=== PATIENT | female | born 1985 | race Caucasian/White ===

== ENCOUNTER 2023-04-28 18:28 | Emergency (ER) | payer BC ==
--- OUTSIDE RECORDS SUMMARY | 2023-04-28 18:32 | XMS REPORT | Continuity of Care Document ---
:1985 Author Organization [facility] t Address [address] [facility] [address] [place] [id number] Care Team Providers Name Role Phone TAMARA RODRIGUEZ Primary Care Physician Unavailable TAWANNA MERCADO Attending Clinician Unavailable KIRSTIE PIZARRO Attending Clinician Unavailable LAB90 Attending Clinician Unavailable MARILYNN CEVALLOS Attending Clinician Unavailable Marilynn Cevallos MD Attending Clinician [phone] Kirstie Pizarro PA-C Attending Clinician Lab, Adc Fam Pob I Attending Clinician Unavailable Tamara Coe Attending Clinician TAMARA RODRIGUEZ Attending Clinician Unavailable Payers Payer Name Policy Type Policy Number Effective Date Expiration Date S ourmiguel HUMANA 3 [id number] 2022 00:00:00 HUMANA CHOICE [id number] 2019 00:00:00 Problems Condition Condition Condition Status Onset Resolution Last Treating Co mments Source Name Details Category Date Date Treatment Clinician Date Morbid Morbid Disease Active Univers obesity obesity 9-28 [place] mass index 00 [place] dical of of Branch 40.0-49.9 40.0-49.9 Allergies, Adverse Reactions, Alerts Allergy Allergy Status Severity Reaction(s) Onset Inactive Treating Comm ents Source Name Type Date Date Clinician Codeine Propensi Active Hives Univers ty to 8-09 ity of adverse 00:00: [place] reaction 00 Medical s Branch CODEINE DRUG Active Hives Univers INGREDI 8- ity of 00:00: [place] 00 [facility] CODEINE DRUG Active Rash Univers INGREDI 2-26 ity of 00:00: [place] 00 [facility] Dent NO KNOWN Drug Active Univers ALLERGIE Class ity of S [facility] Social History Social Habit Start Date Stop Date Quantity Comments Source Exposure to Not sure [facility] SARS-CoV-2 [facility] (event) Dent Alcohol intake 2021-04-23 2021-04-23 Current drinker Unive rsity of 00:00:00 00:00:00 of alcohol [facility] (finding) Dent Tobacco use and 2021-03-24 2021-03-24 Never used Universit y of exposure 00:00:00 00:00:00 [facility] Sex Ass[birth year] Universit y of 00:00:00 00:00:00 [facility] Smoking Status Start Date Stop Date Source Never smoker [facility] Medications Ordered Filled Start Stop Current Ordering Indication Dosage Frequency Signature Comments Components Source Medication Medication Date Date Medication? Clinician (SIG) Name Name MELOXICAM Yes Take by Unive rs ORAL 9-08 mouth. ity of 13:14: [address] METHOCARBAM Yes Take by Uni vers OL ORAL 9-08 mouth. ity of 13:14: [address] MELOXICAM Yes Take by Unive rs ORAL 9-08 mouth. ity of 13:14: [address] METHOCARBAM Yes Take by Uni vers OL ORAL 9-08 mouth. ity of 13:14: [address] LOESTRIN FE Yes Take 1 Univ ers 1 mg-20 mcg 7-21 tablet ity of (21)/75 mg 00:00: orally [place] (7) tablet 00 once daily Med ical at the Dent same time. LOESTRIN FE Yes Take 1 Univ ers 1 mg-20 mcg 7-21 tablet ity of (21)/75 mg 00:00: orally [place] (7) tablet 00 once daily Med ical at the Dent same time. Immunizations Ordered Filled Immunization Date Status Comments Sour e Immunization Name Name TDAP 2021-03-24 Completed [facility] 00:00:00 [facility] TDAP 2021-03-24 Completed [facility] 00:00:00 [facility] SARS-COV-2 COVID-19 2020-10-24 Completed Unive rsity of MAURO/J&J VACCINE 00:00:00 [facility] SARS-COV-2 COVID-19 2020-10-24 Completed Unive rsity of MAURO/J&J VACCINE 00:00:00 [facility] Vital Signs Vital Name Observation Time Observation Value Comments Source Systolic blood 2021-04-23 18:12:00 117 mm[Hg] Univer sity of pressure [facility] Diastolic blood 2021-04-23 18:12:00 77 mm[Hg] Unive rsity of pressure [facility] Heart rate 2021-04-23 18:12:00 76 /min [facility] Body temperature 2021-04-23 18:12:00 36.78 Anitra [facility] Respiratory rate 2021-04-23 18:12:00 18 /min [facility] Body height 2021-04-23 18:12:00 162.6 cm [facility] Body weight 2021-04-23 18:12:00 110.315 kg [facility] BMI 2021-04-23 18:12:00 41.75 kg/m2 [facility] Procedures Procedure Date / Time Performed Performing Clinician Daysi e LAB ONLY PAP 2021-04-23 18:19:00 Kirstie Pizarro [place] SMEAR-LIQUID BASED [facility] h HIGH RISK HPV-THIN 2021-04-23 18:19:00 Kirstie Pizarro [facility] PREP [facility] PAP SMEAR-LIQUID 2021-04-23 18:19:00 Sherri Kirstie [facility] Encounters Start End Encounter Admission Attending Care Care Encounter Source Date/Time Date/Time Type Type Clinicians Facility Department ID 2022-05-22 2022-05-22 Outpatient REVA MERCADO [id number] Reva 00:00:00 00:00:00 TAWANNA Seybol d 2022-05-06 2022-05-06 Outpatient REVA MERCADO [id number] Reva 00:00:00 00:00:00 TAWANNA Seybol d 2022-04-27 2022-04-27 Outpatient Madisyn PIZARRO [facility] [id number] Univers 09:30:00 09:30:00 KIRSTIE [id number] [facility] 2022-04-22 2022-04-22 Outpatient LAB90 REVA HOBBS [id number] Reva 08:20:00 08:20:00 Seybol d 2022-04-16 2022-04-16 Outpatient REVA CEVALLOS [id number] Reva 00:00:00 00:00:00 MARILYNN Seybol d 2022-04-15 2022-04-15 Outpatient LAB90 REVA HOBBS [id number] Reva 09:45:00 09:45:00 Seybol d 2022-04-15 2022-04-15 Office Hunter Cevallos [id number] Reva 09:00:00 09:30:00 Visit Marilynn Proctor [id number] indiradarby Amrit [id number] 2021-05-13 2021-05-13 [facility] [id number] Univers 10:55:03 23:59:00 Encounter Kirstie Jha [id number] [facility] [id number] [facility] [id number] [address] 2021-05-13 2021-05-13 Outpatient Madisyn PIZARRO [facility] [id number] Univers 00:00:00 00:00:00 KIRSTIE [facility] 2021-04-23 2021-04-23 Outpatient Madisyn PIZARRO [facility] [id number] Univers 13:00:00 14:10:09 KIRSTIE [facility] 2021-04-23 2021-04-23 [facility] [id number] Univers 12:48:28 14:10:09 Visit Kirstie Jha [id number] i [place] [id number] [id number] [place] [facility] 2021-04-23 2021-04-23 Outpatient R SHERRI [facility] [id number] Univers 13:00:00 13:00:00 KIRSTIE aguila [facility] 2021-03-24 2021-03-24 Intelligence Director Lab, Adc Fam Pob I [facility] [id number] [facility] 08:49:40 09:09:[address] [facility] [id number] ity of [place] [id number] [place] [id number] [facility] [facility] 044 [facility] 2021-03-24 2021-03-24 [facility] [id number] [facility] 07:39:20 08:52:51 Visit [facility] [id number] it y of [place] [id number] [place] [phone] [place] dical [facility] 044 [facility] 2021-03-24 2021-03-24 Outpatient R JIMMIE [facility] [id number] Univers 08:00:00 08:00:00 TAMARA aguila [facility] 2019-06-27 2019-06-27 Emergency E MHBL [id number] [facility]BL 19:29:00 19:29:00 Results This patient has no known results.
--- NOTE | 2023-04-28 20:03 | RAD REPORT ---
EXAM DESCRIPTION: RAD - Knee Right 3 View - 04/28/2023 7:24 pm CLINICAL HISTORY: PAIN COMPARISON: No comparisons TECHNIQUE: Right knee, 3 views. FINDINGS: No fracture, dislocation or periosteal reaction.Mild joint effusion seen. No joint space n arrowing. No soft tissue abnormality. Clinical concerns for internal derangement or occult bony injury could be further assessed with MR im aging. IMPRESSION: No acute osseous abnormality. Mild joint effusion.
--- NOTE | 2023-04-28 20:16 | EDPHYS ---
Physician Documentation [facility] Name: Olya Armendariz Age: 37 yrs Sex: Female : 1985 Arrival Date: 04/28/2023 Time: 18:28 Bed 13 Private MD: ED Physician Lex Louise HPI: 04/28 19:15 This 37 yrs old Female presents to ER via Wheelchair with complaints of Knee Injury. cp 19:15 The patient presents with an injury, pain, that is acute. The complaints affect the cp right knee. 19:15 Context: While jumping on trampoline at [employer], landed on edge and felt "pop". cp Onset: The symptoms/episode began/occurred today. Modifying factors: the symptoms are aggravated by weight bearing, bending knee. Associated signs and symptoms: The patient has no apparent associated signs or symptoms. 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 - Social history:: Smoking status: unknown. ROS: 19:20 MS/extremity: Positive for pain, tenderness, of the right knee, Negative for decreased cp range of motion, paresthesias. 19:20 Constitutional: Negative for body aches, chills, fever, poor PO intake. cp 19:20 Neck: Negative for pain with movement, pain at rest. 19:20 Cardiovascular: Negative for chest pain, palpitations. 19:20 Respiratory: Negative for cough, shortness of breath, wheezing. 19:20 Abdomen/GI: Negative for abdominal pain, nausea, vomiting, and diarrhea. 19:20 Back: Negative for pain at rest, pain with movement. 19:20 Neuro: Negative for dizziness, headache, numbness, tingling, weakness. 19:20 All other systems are negative. Exam: 19:25 Constitutional: The patient appears in no acute distress, alert, awake, non-toxic, well cp developed, well nourished, uncomfortable. 19:25 Head/Face: Normocephalic, atraumatic. cp 19:25 Neck: ROM/movement: is normal, is supple, without pain, no range of motions limitations. 19:25 Chest/axilla: Inspection: normal. 19:25 Cardiovascular: Rate: normal, Rhythm: regular. 19:25 Respiratory: the patient does not display signs of respiratory distress, Respirations: normal, no use of accessory muscles, no retractions, labored breathing, is not present. 19:25 Abdomen/GI: Exam negative for discomfort, distension, guarding, Inspection: abdomen appears normal. 19:25 Back: pain, is absent, ROM is normal. 19:25 Musculoskeletal/extremity: Extremities: grossly normal except: noted in the right knee: Examination shows no obvious deformities, medial joint line tenderness anterior and posterior, pain with passive range of motion limits exam, no gross swelling appreciated. Vital Signs: 18:57 BP 107 / 65; Pulse 91; Resp 16; Temp 98.4; Pulse Ox 100% ; Weight 94.35 kg; Height 5 iw ft. 4 in. ; Pain 8/10; 20:57 BP 100 / 59; Pulse 85; Resp 18; Pulse Ox 100% on R/A; me1 18:57 Body Mass Index 35.70 (94.35 kg, 162.56 cm) iw 18:57 Pain Scale: Adult iw Procedures: 20:30 Splinting: Splint applied to right knee using knee immobilizer, applied by nurse. cp Patient tolerated well. MDM: 19:01 Patient medically screened. cp 19:59 Independent interpretation of the following test(s) in the Emergency Department X-Ray: cp My interpretation is images of right knee negative for fracture. 20:13 Data reviewed: vital signs, nurses notes, radiologic studies, plain films, and as a cp result, I will discharge patient. I considered the following discharge prescriptions or medication management in the emergency department Medications were administered in the Emergency Department. See OCT. ED course: VSS. Will place in knee immobilizer, recommend use of crutches and non-wt bearing. Recommend f/u with ortho. 04/28 19:01 Order name: XRAY Knee RIGHT 3 view; Complete Time: 20:05 cp 04/28 20:05 Interpretation: Report reviewed. cp 04/28 20:05 Order name: Knee Immobilizer; Complete Time: 20:57 cp 04/28 20:05 Order name: Crutches; Complete Time: 20:57 cp Administered Medications: 20:08 Drug: Ibuprofen PO 800 mg Route: PO; me1 20:57 Follow up: Response: No adverse reaction; Pain is decreased me1 20:08 Drug: Acetaminophen PO 1000 mg Route: PO; me1 20:57 Follow up: Response: No adverse reaction; Pain is decreased me1 Disposition: 21:02 Co-signature as Attending Physician, Lex Louise DO I was immediately available on-site ms3 in the Emergency Department for consultation in the care of the patient. Disposition Summary: 04/28/23 20:15 Discharge Ordered Location: Home cp Problem: new cp Symptoms: have improved cp Condition: Stable cp Diagnosis - Sprain of unspecified site of right knee cp Followup: cp - With: Aguilar Sandy MD - When: 2 - 3 days - Reason: Recheck today's complaints Discharge Instructions: - Discharge Summary Sheet cp - Knee Sprain, Adult cp Forms: - Medication Reconciliation Form cp - Thank You Letter cp - Antibiotic Education cp - Prescription Opioid Use cp - Patient Portal Instructions cp - Leadership Thank You Letter cp Prescriptions: - Naprosyn 500 mg Oral Tablet - take 1 tablet by ORAL route 2 times per day take with food; 20 tablet; Refills: cp 0, Product Selection Permitted Signatures: Dispatcher [employer] Marsha Kaba, RN RN Barron Patel PA PA cp Lex Louise DO DO ms3 Myra Cardenas RN RN me1
--- NOTE | 2023-04-28 20:16 | ER ---
Nurse's Notes [facility] Name: Olya Armendariz Age: 37 yrs Sex: Female : 1985 Arrival Date: 04/28/2023 Time: 18:28 Bed 13 Private MD: Diagnosis: Sprain of unspecified site of right knee Presentation: 04/28 18:57 Chief complaint: Patient states: was jumping on trampoline and felt her right knee pop iw three times, now there is bruising. Coronavirus screen: At this time, the client does not indicate any symptoms associated with coronavirus-19. Ebola Screen: Patient negative for fever greater than or equal to 101.5 degrees Fahrenheit, and additional compatible Ebola Virus Disease symptoms Patient denies exposure to infectious person. Patient denies travel to an Ebola-affected area in the 21 days before illness onset. No symptoms or risks identified at this time. Initial Sepsis Screen: Does the patient meet any 2 criteria? No. Patient's initial sepsis screen is negative. Does the patient have a suspected source of infection? No. Patient's initial sepsis screen is negative. Risk Assessment: Do you want to hurt yourself or someone else? Patient reports no desire to harm self or others. Onset of symptoms was April 28, 2023. 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 - Social history:: Smoking status: unknown. Screenin:10 [facility] ED Fall Risk Assessment (Adult) History of falling in the last 3 months, me1 including since admission No falls in past 3 months (0 pts) Confusion or Disorientation No (0 pts) Intoxicated or Sedated No (0 pts) Impaired Gait Yes (1 pt) Mobility Assist Device Used No (0 pt) Altered Elimination No (0 pt) Score/Fall Risk Level 0 - 2 = Low Risk. Abuse screen: Denies threats or abuse. Nutritional screening: No deficits noted. Tuberculosis screening: No symptoms or risk factors identified. Assessment: 20:10 General: Appears uncomfortable, obese, well groomed, well developed, well nourished, me1 Behavior is calm, cooperative, appropriate for age. General: Reports jumping on a trampoline about 3 pm today and her right knee popped and now is hurting and bruised. Pain: Complains of pain in right knee Pain does not radiate. Pain currently is 8 out of 10 on a pain scale. Quality of pain is described as tender, throbbing, Pain began suddenly, 4 hours ago. Is continuous. Neuro: Level of Consciousness is awake, alert, obeys commands, Oriented to person, place, time, situation, Appropriate for age. Cardiovascular: Capillary refill < 3 seconds Patient's skin is warm and dry. Respiratory: Airway is patent Respiratory effort is even, unlabored, Respiratory pattern is regular, symmetrical. Musculoskeletal: Reports pain in right knee. Vital Signs: 18:57 BP 107 / 65; Pulse 91; Resp 16; Temp 98.4; Pulse Ox 100% ; Weight 94.35 kg; Height 5 iw ft. 4 in. ; Pain 8/10; 20:57 BP 100 / 59; Pulse 85; Resp 18; Pulse Ox 100% on R/A; me1 18:57 Body Mass Index 35.70 (94.35 kg, 162.56 cm) iw 18:57 Pain Scale: Adult iw ED Course: 18:32 Patient arrived in ED. im 18:35 Barron Guerrero PA is PHCP. cp 18:35 Lex Louise DO is Attending Physician. cp 18:58 Triage completed. iw 18:58 Arm band placed on. iw 19:26 XRAY Knee RIGHT 3 view In Process Unspecified. EDMS 20:04 Myra Cardenas, RUSSELL is Primary Nurse. me1 20:10 Patient has correct armband on for positive identification. Bed in low position. Call me1 light in reach. Side rails up X 1. Provided Education on: POC. Verbalized understanding.. 20:10 No provider procedures requiring assistance completed. Patient did not have IV access me1 during this emergency room visit. 20:14 Aguilar Sandy MD is Referral Physician. cp Administered Medications: 20:08 Drug: Ibuprofen PO 800 mg Route: PO; me1 20:57 Follow up: Response: No adverse reaction; Pain is decreased me1 20:08 Drug: Acetaminophen PO 1000 mg Route: PO; me1 20:57 Follow up: Response: No adverse reaction; Pain is decreased me1 Medication: 20:10 VIS not applicable for this client. me1 Outcome: 20:15 Discharge ordered by . jose 20:57 Discharged to home ambulatory, with crutches, with family. me1 20:57 Condition: stable 20:57 Discharge instructions given to patient, family, Instructed on discharge instructions, follow up and referral plans. medication usage, Demonstrated understanding of instructions, follow-up care, medications, Prescriptions given X 1. 20:58 Patient left the ED. me1 Signatures: Dispatcher [employer] EDMarsha Hull RN RN iw Barron Guerrero PA PA cp Mendoza, Itzel im Eddleman, Michelle, RN RN me1 Corrections: (The following items were deleted from the chart) 18:59 18:57 Chief complaint: Patient states: was jumping on trampoline and felt her right iw knee pop twice, now there is bruising iw 18:59 18:57 Pulse 91bpm; Resp 16bpm; Pulse Ox 100%; Temp 98.4F; 94.35 kg; Height 5 ft. 4 in.; iw BMI: 35.7; Pain 8/10, Adult; iw 19:02 18:57 Pulse 91bpm; Resp 16bpm; Pulse Ox 100%; Temp 98.4F; 94.35 kg; Height 5 ft. 4 in.; iw BMI: 35.7; Pain 8/10, Adult; iw
[2023-04-28] MEDS ORDERED: ACETAMINOPHEN 500 MG TAB ONE (20:17)
[2023-04-28] MEDS ORDERED: IBUPROFEN 400 MG TAB ONE (20:17)
[2023-04-28 22:11] VITALS: TEMP 98.4; O2SAT 100
[2023-04-28 22:13] VITALS: BP 100/59
== END 2023-04-28 20:58 | disposition home or self-care (01) ==
LOC: ER 18:28
DX: S83.91XA Sprain of unspecified site of right knee, initial encounter (principal)
CPT/HCPCS: 99283

== ENCOUNTER 2023-07-23 06:02 | Day surgery (SDC) | payer BC ==
[2023-07-19 10:11] LABS: Absolute Lymphocytes (CBC) 1.8 K/uL (0.7-4.9); Hematocrit 41.8 % (36.0-45.0); Lymphocytes % 25.6 % (15.3-44.8); MCV 88.9 fL (80-100); Platelets 217 thou/uL (152-406)
--- NOTE | 2023-07-19 10:14 | RAD REPORT ---
EXAM DESCRIPTION: RAD - Chest Pa And Lat (2 Views) - 07/19/2023 10:01 am CLINICAL HISTORY: Pre op pending meniscus repair COMPARISON: No comparisons FINDINGS: Lines: None. Lungs: No evidence of edema or pneumonia. Pleural: No significant pleural effusions or pneumothorax. Cardiac: The heart size is within normal limits. Mediastinum: Within normal limits. Bones: No acute fractures. Other: None IMPRESSION: No acute cardiopulmonary disease.
[2023-07-19 10:25] LABS: Protime INR 0.95
[2023-07-19 10:26] LABS: Potassium 3.9 mEq/L (3.5-5.1)
--- NOTE | 2023-07-20 13:31 | EKG ---
Test Date: 2023-07-19 Test Time: 10:28:06 Manager Party: KASHIF MEASUREMENT RESULTS: Intervals: Rate: 66 [place]: 162 QRSD: 82 QT: 370 QTc: 387 [place]: P: 50 [place]: 162 QRS: 74 T: 38 INTERPRETIVE STATEMENTS: Normal sinus rhythm Normal ECG No previous ECG available for comparison Electronically Signed On 07-20-23 13:27:15 ELECTRICAL AND RADIO MOCK UP MECHANIC by Rigoberto Guevara
[2023-07-23] MEDS ORDERED: CEFAZOLIN SODIUM 2 GM/VIAL ONE (06:19)
[2023-07-23] MEDS ORDERED: Ringers Lactate 1,000 ML IV ONE (06:19)
[2023-07-23] MEDS ORDERED: EPINEPHRINE 1 MG/ML VIAL ONE ×2 (07:17→09:39)
[2023-07-23] MEDS ORDERED: dexAMETHasone 10 MG/ML VIAL ONE ×2 (07:17→09:39)
[2023-07-23] MEDS ORDERED: BUPIVACAINE 0.5% PF 10 ML VIAL ONE (07:17)
[2023-07-23] MEDS ORDERED: LIDOCAINE 1% MPF 5 ML VIAL ONE ×2 (07:17→09:39)
[2023-07-23] MEDS ORDERED: FENTANYL CITR 100 MCG/2 ML ONE ×2 (07:17→09:39)
[2023-07-23] MEDS ORDERED: MIDAZOLAM HCL 2 MG/2 ML INJ ONE ×2 (07:18→09:39)
[2023-07-23] MEDS ORDERED: dexAMETHasone 4 MG/ML VIAL ONE (07:54)
[2023-07-23] MEDS ORDERED: LIDOCAINE 2% MPF 5 ML VIAL ONE ×2 (07:54→09:39)
[2023-07-23] MEDS ORDERED: ONDANSETRON 4 MG/2 ML VIAL ONE ×2 (07:54→09:39)
[2023-07-23] MEDS ORDERED: KETOROLAC 30 MG/ML INJ ONE (07:54)
[2023-07-23] MEDS ORDERED: propofoL 200 MG/20 ML VIAL IV ONE ×2 (07:55→09:39)
[2023-07-23] MEDS: HYDROMORPHONE HCL 1 MG/ML INJ ONE ×2 (10:30→10:35)
--- NOTE | 2023-07-23 10:55 | RAD REPORT ---
EXAM DESCRIPTION: RAD - Knee Right 2 View - 07/23/2023 10:29 am CLINICAL HISTORY: The right knee surgery FINDINGS: Right knee is immobilized status post surgery. No fracture or dislocation. Patient is status post ACL repair
--- NOTE | 2023-07-23 11:04 | P.BOP ---
Preoperative diagnosis: right knee ACL tear, medial meniscus tear Postoperative diagnosis: same Primary procedure: right knee arthroscopic ACL reconstruction with Achilles allograft Secondary procedure: right knee arthroscopic partial medial meniscectomy Other procedure(s): right knee arthroscopic Animal Control Specialist: NONE,NONE Estimated blood loss: 5 cc Specimen: none Findings: see dictation Anesthesia: General Complications: None Implants: 7x20 mm arthrex bio screw, 10x30 bioscrew, 4.75 mm arthrex swivelock Fluids & blood products: per anesthesia record; TT: 69 mins @ 300 mmHg Transferred to: Recovery Room Condition: Good
[2023-07-23 12:00] VITALS: BP 111/66; TEMP 98.7; O2SAT 96
--- NOTE | 2023-07-25 21:14 | P.OP ---
Preoperative diagnosis: right knee ACL tear, medial meniscus tear Postoperative diagnosis: same Primary procedure: right knee arthroscopic ACL reconstruction with Achilles allograft Secondary procedure: right knee arthroscopic partial medial meniscectomy Other procedure(s): right knee arthroscopic medial plica excision Anesthesia: general Estimated blood loss: 5 cc Specimen: none Findings: see dictation Operative Technique: Indications For Procedure: Olya is a 37-year-old female, who presented to my clinic after sustaining an injury to her right knee. She reports subsequent instability, pain, and swelling to her right knee. Physical exam findings, as well as MRI findings were consistent with right knee ACL tear and medial me niscus tear. After a discussion with the patient and her family the risks and benefits associated operative and nonoperative treatment at length, as well as graft options, they expressed understanding and elected to proceed with right ACL reconstruction with bone-patellar tendon-bone autograft and partial medial meniscectomy vs. medial meniscus repair. Description Of Procedure: After informed consent was obtained, the patient was identified in the preoperative holding area. The right lower extremity was marked. The patient was then brought back to the operating room, transferred to the operating table in supine fashion, and placed under general LMA anesthesia. The right lower extremity was examined. The patient did have full range of motion and a positive Tatum examination with instability and no endpoint. The right lower extremity was then prepped and draped in the usual sterile fashion, and a timeout was initiated. The correct patient and procedure were identified. The patient did receive his prophylactic preoperative antibiotics. An Esmarch was then used exsanguinate the right lower extremity, and the tourniquet was then inflated to 300 mmHg. The Achilles allograft was prepared on the back table by first assistant with a 9x20 mm bone block, 100 mm in length and whipstitched to a thickness of 10 mm. Next, a standard anterolateral portal was made, and a diagnostic arthroscopy was performed. The arthroscope was brought into the patellofemoral compartment. The patient was noted to have pristine cartilage over the undersurface of the patella, as well as the trochlear groove. There was a medial plica noted and a medial plica excision was performed using an arthroscopic shaver and radiofrequency ablater. The arthroscope was then brought into both medial and lateral gutters, and there were no obvious loose bodies noted. The arthroscope was then brought into the medial compartment, and under direct visualization with the spinal needle and an 11 blade, an anteromedial portal was then created. The probe was inserted, and the patient had some chondromalacia and softening of the medial femoral condyle. There was a complex tear to the posterior horn of the medial meniscus. The tear was not amenable to repair. At that time, a partial medial meniscectomy was performed with a meniscal biter and an arthroscopic shaver to smooth meniscal borders. Loose chondral flaps were debrided with a meniscal biter and arthroscopic shaver. The arthroscope was then brought into the intracondylar notch, and the patient was noted to have an obvious ACL tear. The remaining ACL was then removed using an arthroscopic shaver, and a radiofrequency ablater was then used to elevate the soft tissue off the lateral femoral condyle. This was also used to levi the footprint on the tibial plateau. Next, the arthroscope was brought into the lateral compartment. The patient was noted to have pristine cartilage over the lateral femoral condyle and the lateral tibial plateau with no obvious chondral pathology. The lateral meniscus was stable to probe and without tear. The arthroscope was then brought back into the intracondylar notch, and an 11 mm retro cutter was then placed over the tibial footprint. A 2 cm incision was made over the anteromedial proximal tibia for the placement of the guide onto the proximal tibia, and a guidepin was then introduced, and then tibial tunnel was retroreamed. An arthroscopic shaver was then used to clean out any bony debris within the tunnel, as well as within the joint. The knee was then brought into hyperflexion, and a 7 mm femoral offset was then used, and it was placed over a prior marked area at the insertion of the ACL on the lateral femoral condyle. A guidepin was then placed, and a 4.5 mm reamer was used over-ream the guidepin to ensure proper tunneling depth, and a 10 mm low profile reamer was then used to create the femoral tunnel. The arthroscopic shaver was then used to clean any bony debris. The graft was then placed through the tunnel, and the grasper, which had been prepared on the back table, was then passed and placed into proper position within the femoral tunnel using hemostats. The tunnel was then notched and tapped, and a 7 x 20 Arthrex biocomposite screw was placed. The knee was then placed in extension with tension being placed on the graft and the arthroscope was then placed in the tibial tunnel good position of the graft in the tunnel, and it was well seated within the tunnel, and the 10 x 30 mm biointerference screw was then placed in the tibial tunnel without complication. The knee was then examined and found to have a stable Tatum, and a swivelock was then placed for back-up fixation, and the wounds were then irrigated thoroughly with normal saline. The subcutaneous tissue was then approximated using 2-0 Vicryl, and the portal site incisions were approximated using a 5-0 Monocryl. Postoperative Plan: The patient will proceed with postoperative therapy, weightbearing as tolerated in her right lower extremity, and she will follow up with me in next week for first followup visit, as well as a check up. Complications: None Implants: Arthrex 7x20 mm Bioscrew, 10x30 mm Bioscrew, Swivelock Fluids & blood products: per anesthesia record; TT: 69 mins @ 300 mmHg Transferred to: Recovery Room Condition: Good
== END 2023-07-23 11:35 | disposition home or self-care (01) ==
LOC: OR 06:02
PROVIDERS: ATTEND Orthopaedic Surgery Sports Medicine
PROC: 0MSN4ZZ Reposition Right Knee Bursa and Ligament, Percutaneous Endoscopic Approach (ICD-10-PCS; 2023-07-23)
PROC: 0SBC4ZZ Excision of Right Knee Joint, Percutaneous Endoscopic Approach (ICD-10-PCS; principal; 2023-07-23 08:00)
DX: S83.511A Sprain of anterior cruciate ligament of right knee, initial encounter (principal); S83.241A Other tear of medial meniscus, current injury, right knee, initial encounter; M25.561 Pain in right knee; F41.9 Anxiety disorder, unspecified; E66.9 Obesity, unspecified
CPT/HCPCS: 29888; 29881; 93005; 85025; 80048; 36415; 85610; 85730; 71046; 73560; J2704; J1100 ×2; J2001 ×2; J2250 ×2; J3010; J0171; J1170; J2405; J7120

== ENCOUNTER 2024-06-07 22:13 | Emergency (ER) | payer OTHER ==
--- OUTSIDE RECORDS SUMMARY | 2024-06-07 22:16 | XMS REPORT | Continuity of Care Document ---
Author Name Unknown Address [address] [facility] [place] [address] [facility] Address [address] [facility] [address] [place] [address] Care Team Providers Care Nc Manager Name Role Phone TAMARA RODRIGUEZ Primary Care Physician Unavailab KATHARINA Poe Attending Clinician Unavailable TAWANNA MERCADO Attending Clinician Unavailable KIRSTIE PIZARRO Attending Clinician Unavailable LAB90 Attending Clinician Unavailable MARILYNN CEVALLOS Attending Clinician UnaMarilynn Wallace MD Attending Clinician [phone] Kirstie Pizarro PA-C Attending Clinician [phone] Lab, Adc Fam Pob I Attending Clinician UnavailTamara Ramon Attending Clinician [phone] TAMARA RODRIGUEZ Attending Clinician Unavailable Payers Payer Name Policy Type Policy Number Effective Date Expirati on Date Source [employer] 3 [id number] 2022 00:00:00 [employer] CHOICE [id number] 2019 00:00:00 Problems Condition Name Condition Details Condition Category Status Onset Date Resolution Date Last Treatment Date Treating Clinician Comments Source Morbid obesity with body mass index of 40.0-49.9 Morbid obesity with body mass index of 40.0-49.9 Disease Active 9- 00:00: 00 [facility] Allergies, Adverse Reactions, Alerts Allergy Name Allergy Type Status Severity Reaction(s) Onset Date Inactive Date Treating Clinician Comments Source Codeine Propensi ty to adverse reaction s Active Hives 03-24 00:00: 00 [facility] CODEINE DRUG INGREDI Active Hives 03-24 00:00: 00 [facility] CODEINE DRUG INGREDI Active Rash 2- 00:00: 00 [facility] NO KNOWN ALLERGIE S Drug Class Active [facility] Social History Social Habit Start Date Stop Date Quantity Comments Source Exposure to SARS-CoV-2 (event) Not sure [facility] Alcohol intake 2021-04-23 00:00:00 2021-04-23 00:00:00 Current drinker of alcohol (finding) [facility] Tobacco use and exposure 2021-03-24 00:00:00 2021-03-24 00:00:00 Never used [facility] Sex Assigned At 1985 00:00:00 1985 00:00:00 [facility] Smoking Status Start Date Stop Date Source Never smoker [facility] Medications Ordered Medication Name Filled Medication Name Start Date Stop Date Current Medication? Ordering Clinician Indication Dosage Frequency Signature (SIG) Comments Components Source MELOXICAM ORAL 04-23 13:14: 39 Yes Take by mouth. [facility] LOESTRIN FE 1 mg-20 mcg (21)/75 mg (7) tablet 7 00:00: 00 Yes Take 1 tablet orally once daily at the same time. [facility] Vital Signs Vital Name Observation Time Observation Value Comments S madie Systolic blood pressure 2021-04-23 18:12:00 117 mm[Hg] [facility] Diastolic blood pressure 2021-04-23 18:12:00 77 mm[Hg] [facility] Heart rate 2021-04-23 18:12:00 76 /min [facility] Body temperature 2021-04-23 18:12:00 36.78 Anitra [facility] Respiratory rate 2021-04-23 18:12:00 18 /min [facility] Body height 2021-04-23 18:12:00 162.6 cm [facility] Body weight 2021-04-23 18:12:00 110.315 kg [facility] BMI 2021-04-23 18:12:00 41.75 kg/m2 [facility] Procedures Procedure Date / Time Performed Performing Clinicia n Source LAB ONLY PAP SMEAR-LIQUID BASED 2021-04-23 18:19:00 Kirstie Pizarro [facility] HIGH RISK HPV-THIN PREP 2021-04-23 18:19:00 Kirstie Pizarro [facility] PAP SMEAR-LIQUID BASED-CP 2021-04-23 18:19:00 Kirstie Pizarro [facility] Encounters Start Date/Time End Date/Time Encounter Type Admission Type Attending [facility] Care Facility Care Department Encounter ID Source 2024-03-13 08:34:01 Outpatient [facility] [id number] [facility] 2024-01-28 09:24:00 2024-01-28 12:29:00 Emergency E KATHARINA JIN [facility] [id number] [facility] 2022-05-22 00:00:00 2022-05-22 00:00:00 Outpatient TAWANNA MERCADO [id number] [facility] 2022-05-06 00:00:00 2022-05-06 00:00:00 Outpatient TAWANNA MERCADO [id number] [facility] 2022-04-27 09:30:00 2022-04-27 09:30:00 Outpatient KIRSTIE LUU [facility] [id number] [facility] 2022-04-22 08:20:00 2022-04-22 08:20:00 Outpatient LAB90 REVA HOBBS [id number] Reva Scott 2022-04-16 00:00:00 2022-04-16 00:00:00 Outpatient MARILYNN CEVALLOS [id number] [facility] Scott 2022-04-15 09:45:00 2022-04-15 09:45:00 Outpatient LAB90 REVA HOBBS [id number] Reva Scott 2022-04-15 09:00:00 2022-04-15 09:30:00 Office Visit Marilynn Cevallos [id number] Reva Scott 2021-05-13 10:55:03 2021-05-13 23:59:00 Hospital Encounter [facility] 1..[id number] [facility] 2021-05-13 00:00:00 2021-05-13 00:00:00 Outpatient Madisyn LAURAKARLO [facility] [id number] [facility] 2021-04-23 13:00:00 2021-04-23 14:10:09 Outpatient Madisyn PIZARRO [facility] [id number] [facility] 2021-04-23 12:48:28 2021-04-23 14:10:09 Office Visit [facility] Building [id number] [facility] 2021-04-23 13:00:00 2021-04-23 13:00:00 Outpatient Madisyn PIZARRO [facility] [id number] [facility] 2021-03-24 08:49:40 2021-03-24 09:09:40 Form Carpenter Visit Lab, Adc [facility] Office Building One [id number] [facility] 2021-03-24 07:39:20 2021-03-24 08:52:51 Office Visit Tamaar Rodriguez [facility] One [id number] [facility] 2021-03-24 08:00:00 2021-03-24 08:00:00 Outpatient R TAMARA RODRIGUEZ [facility] [id number] [facility] 2019-06-27 19:29:00 2019-06-27 19:29:00 Emergency E [id number] [facility]
[2024-06-07] MEDS ORDERED: ONDANSETRON 4 MG/2 ML VIAL ONE (23:20)
[2024-06-07] MEDS ORDERED: FENTANYL CITR 100 MCG/2 ML ONE (23:20)
[2024-06-07] MEDS ORDERED: KETOROLAC 30 MG/ML INJ ONE (23:20)
[2024-06-07] MEDS ORDERED: NA CHLORIDE 0.9% 1,000 ML ONE (23:21)
[2024-06-07 23:43] LABS: Absolute Basophils 0.1 K/uL (0-0.5); Absolute Eosinophils 0.1 K/uL (0-0.5); Absolute Lymphocytes (CBC) 1.8 K/uL (0.7-4.9); Absolute Monocytes 0.6 K/uL (0.1-1.3); Absolute Neutrophil 9.5 K/uL (1.8-8.0); Basophils % 0.5 % (0-1.3); Hematocrit 43.5 % (36.0-45.0); Hemoglobin 14.6 g/dL (12.0-15.0); MCH 29.8 pg (27.0-35.0); MCHC 33.4 g/dL (32.0-36.0); MCV 89.1 fL (80-100); MPV 9.3 fL (7.6-11.3); Monocytes % 4.7 % (3.3-12.3); Neutrophils % 78.8 % (41.7-73.7); Platelets 248 thou/uL (152-406); RBC Red Blood Cell Count 4.89 M/uL (3.86-4.86); Red Cell Distribution Width 13.1 % (12.1-15.2)
[2024-06-08 00:02] LABS: Albumin 3.4 g/dL (3.4-5.0); Albumin/Globulin Ratio 0.8 (1.1-1.8); Anion Gap 10.4 mEq/L (5.0-15.0); Bilirubin Total 0.3 mg/dL (0.2-1.0); Globulin 4.3 g/dL (2.3-3.5); Potassium 3.4 mEq/L (3.5-5.1); Protein, Total 7.7 g/dL (6.4-8.2)
[2024-06-08 01:29] LABS: Specific Gravity 1.007 (1.005-1.030)
[2024-06-08 01:31] LABS: Specific Gravity 1.007 (1.005-1.030); Sqamous Epithelial <5 /HPF (None Seen); Urine Bacteria 20-50 /HPF (<20); Urine Bilirubin NEGATIVE (Negative); Urine Blood Negative (Negative); Urine Clarity Turbid (Clear); Urine Color Colorless (Yellow); Urine Culture Reflex Order NOT NEEDED; Urine Glucose NEGATIVE (Negative); Urine Ketones NEGATIVE (Negative); Urine Microscopic Reflex YN ORDER UMIC; Urine Mucus Slight /HPF (None Seen); Urine Nitrite 1+ (Negative); Urine Protein NEGATIVE (Negative); Urine RBC <5 /HPF (None Seen); Urine Urobilinogen Normal (Normal); Urine WBC <5 /HPF (<5)
--- NOTE | 2024-06-08 03:08 | ER ---
Nurse's Notes [facility] Name: Olya Armendariz Age: 38 yrs Sex: Female : 1985 Arrival Date: 06/07/2024 Time: 22:13 Bed 18 Private MD: Dagoberto Coleman E Diagnosis: Acute Thoracic Back pain , Acute left upper back musculoskeletal pain Presentation: 06/07 22:42 Chief complaint: Patient states: Feeling short of breathe and pain to left back front cg and back. Started today around 1730. Ebola Screen: Patient negative for fever greater than or equal to 101.5 degrees Fahrenheit, and additional compatible Ebola Virus Disease symptoms. Initial Sepsis Screen: Does the patient meet any 2 criteria? No. Patient's initial sepsis screen is negative. Does the patient have a suspected source of infection? No. Patient's initial sepsis screen is negative. Risk Assessment: Do you want to hurt yourself or someone else? Patient reports no desire to harm self or others. Onset of symptoms was June 07, 2024. 22:42 Method Of Arrival: Ambulatory 22:42 Acuity: GENEVIEVE 3 cg 06/08 02:58 Coronavirus screen: Client denies travel out of the [place] in the last 14 days. rg5 Triage Assessment: 02:58 General: Appears distressed, Behavior is calm, cooperative. Neuro: Level of rg5 Consciousness is awake, alert, obeys commands. Cardiovascular: Capillary refill Patient's skin is warm and dry. Respiratory: Onset: The symptoms/episode began/occurred. GI: Abd is soft and non tender. : No signs and/or symptoms were reported regarding the genitourinary system. Derm: Skin is intact, Skin is diaphoretic, dry, Skin is. Musculoskeletal: Circulation, motion, and sensation intact. Range of motion: limited in all extremities. Historical: - Allergies: 00:29 Codeine; jb4 - Immunization history:: Adult Immunizations unknown. - Infectious Disease History:: Denies. - Social history:: Smoking status: unknown. Screenin:29 [facility] ED Fall Risk Assessment (Adult) History of falling in the last 3 months, jb4 including since admission No falls in past 3 months (0 pts) Confusion or Disorientation No (0 pts) Intoxicated or Sedated No (0 pts) Impaired Gait No (0 pts) Mobility Assist Device Used No (0 pt) Altered Elimination No (0 pt) Score/Fall Risk Level 0 - 2 = Low Risk Oriented to surroundings, Maintained a safe environment. Abuse screen: Denies threats or abuse. Nutritional screening: No deficits noted. Tuberculosis screening: No symptoms or risk factors identified. Assessment: 00:00 General: Appears in no apparent distress. uncomfortable, Behavior is calm, cooperative, jb4 appropriate for age. Pain: Complains of pain in left low back and left mid back Pain does not radiate. Pain currently is 10 out of 10 on a pain scale. Neuro: Level of Consciousness is awake, alert, obeys commands, Oriented to person, place, time, situation. Cardiovascular: Patient's skin is warm and dry. Respiratory: Airway is patent Respiratory effort is even, unlabored, Respiratory pattern is regular, symmetrical. GI: Abdomen is non-distended, obese, Reports nausea, vomiting. : Reports pain in left flank(s). Derm: Skin is intact, Skin is pink, warm \T\ dry. Musculoskeletal: Circulation, motion, and sensation intact. Range of motion: intact in all extremities. 01:30 Reassessment: Patient and/or family updated on plan of care and expected duration. Pain rg5 level reassessed. Patient is alert, oriented x 3, equal unlabored respirations, skin warm/dry/pink. 01:30 General: Appears in no apparent distress. Behavior is calm, cooperative, appropriate rg5 for age. Neuro: Level of Consciousness is awake, alert, obeys commands, Oriented to person, place, time. Cardiovascular: Patient's skin is warm and dry. Rhythm is regular. Respiratory: Airway is patent Respiratory effort is even, unlabored, Respiratory pattern is regular, symmetrical, Breath sounds are clear. GI: Abdomen is obese, Abd is soft and non tender X 4 quads. : No signs and/or symptoms were reported regarding the genitourinary system. EENT: No deficits noted. Derm: Skin is intact, Skin is dry, Skin is normal, Skin temperature is warm. Musculoskeletal: Circulation, motion, and sensation intact. Range of motion: intact in all extremities. 02:24 Reassessment: Patient and/or family updated on plan of care and expected duration. Pain rg5 level reassessed. Patient is alert, oriented x 3, equal unlabored respirations, skin warm/dry/pink. Vital Signs: 06/07 22:42 BP 116 / 74; Pulse 86; Resp 22; Temp 97.7; Pulse Ox 100% ; Weight 97.98 kg; Height 5 cg ft. 4 in. ; Pain 710; 06/08 00:33 BP 110 / 59; Pulse 66; Resp 16; Pulse Ox 100% on R/A; jb4 01:41 BP 116 / 66; Pulse 67; Resp 17; Pulse Ox 99% on R/A; rg5 02:22 BP 101 / 60; Pulse 67; Resp 17; Pulse Ox 100% on R/A; rg5 06/07 22:42 Body Mass Index 37.08 (97.98 kg, 162.56 cm) cg 06/07 22:42 Pain Scale: Adult cg ED Course: 06/07 22:18 Patient arrived in ED. gm2 22:18 Dagoberto Coleman MD is Private Physician. gm2 22:27 Filomena Proctor FNP-C is PSYCHIATRIC. kb 22:27 Manas Ellington MD is Attending Physician. kb 22:44 Triage completed. cg 23:15 CBC with Diff Sent. jb4 23:15 CMP Sent. jb4 23:15 Lipase Sent. jb4 23:29 Amadeo Maria, RN is Primary Nurse. jb4 23:59 CT Stone Protocol In Process Unspecified. EDMS 06/08 00:29 Provided Education on: plan of care. jb4 02:58 Arm band placed on. rg5 03:03 Dagoberto Coleman MD is Referral Physician. sp4 03:23 No provider procedures requiring assistance completed. IV discontinued, bleeding rg5 controlled, No redness/swelling at site. Pressure dressing applied. Administered Medications: 06/07 23:29 Drug: NS 0.9% IV 1000 ml IV at 1 bolus Per protocol; to be given as a bolus over 60 jb4 minutes Route: IV; Rate: 1 bolus; Site: right antecubital; 06/08 00:30 Follow up: IV Status: Completed infusion; IV Intake: 1000ml rg5 06/07 23:29 Drug: fentaNYL (PF) IVP 25 mcg IVP once Route: IVP; Site: right antecubital; jb4 06/08 01:24 Follow up: Response: No adverse reaction; Pain is decreased rg5 06/07 23:30 Drug: TORadol - Ketorolac IVP 15 mg IVP once Route: IVP; Site: right antecubital; jb4 06/08 03:09 Follow up: Response: No adverse reaction rg5 06/07 23:30 Drug: Ondansetron IVP 4 mg IVP once; over 2 minutes Route: IVP; Site: right antecubital;jb4 06/08 03:09 Follow up: Response: No adverse reaction rg5 Medication: 00:29 VIS not applicable for this client. jb4 Intake: 00:30 IV: 1000ml; Total: 1000ml. rg5 Outcome: 03:07 Discharge ordered by MD. sp4 03:23 Discharged to home ambulatory, rg5 03:23 Condition: stable 03:23 Discharge instructions given to patient, Instructed on discharge instructions, follow up and referral plans. Demonstrated understanding of instructions, follow-up care, medications, Prescriptions given X 3, 03:24 Patient left the ED. rg5 Signatures: Dispatcher [employer] EDMS Filomena Proctor, REAGAN-C SECURITY SOFTWARE ENGINEER-Tata Thapa, RUSSELL RN Amadeo Maria RN RN jb4 Manas Ellington MD MD spKrystin Vaca gm2 Marco A Ledesma, RN RN rg5 Corrections: (The following items were deleted from the chart) 00: 00:28 General: Appears in no apparent distress. uncomfortable, Behavior is calm, jb4 cooperative, appropriate for age, jb4 00: 00:28 Pain: Complains of pain in left low back and left mid back Pain does not radiate. jb4 Pain currently is 10 out of 10 on a pain scale. jb4 : 00:28 Neuro: Level of Consciousness is awake, alert, obeys commands, Oriented to jb4 person, place, time, situation, jb4 : 00:28 Cardiovascular: Patient's skin is warm and dry. jb4 jb4 00:28 Respiratory: Airway is patent Respiratory effort is even, unlabored, Respiratory jb4 pattern is regular, symmetrical, jb4 : 00:28 GI: Abdomen is non-distended, obese, Reports nausea, vomiting, jb4 jb4 00:28 : Reports pain in left flank(s), jb4 jb4 : 00:28 Derm: Skin is intact, Skin is pink, warm \T\ dry. jb4 jb4 : 00:28 Musculoskeletal: Circulation, motion, and sensation intact. Range of motion: jb4 intact in all extremities, jb4
--- NOTE | 2024-06-08 03:08 | EDPHYS ---
Physician Documentation [facility] Name: Olya Armendariz Age: 38 yrs Sex: Female : 1985 Arrival Date: 06/07/2024 Time: 22:13 Bed 18 Private MD: Dagoberto Coleman E ED Physician Manas Ellington HPI: 06/07 23:41 This 38 yrs old Female presents to ER via Ambulatory with complaints of Breathing kb Difficulty, Neck and Upper Back Pain, Nausea/Vomiting. 23:41 Pt is a 38 year old female who presents for pain to left mid back and upper abd (worse kb on the left) that started around 1730 today. States the pain has caused her to vomit. Denies urinary symptoms, fever, diarrhea. . Historical: - Allergies: 06/08 00:29 Codeine; jb4 - Immunization history:: Adult Immunizations unknown. - Infectious Disease History:: Denies. - Social history:: Smoking status: unknown. ROS: 06/07 23:42 Constitutional: As per HPI kb Exam: 23:42 Constitutional: This is a well developed, well nourished patient who is awake, alert, kb and in no acute distress. Head/Face: Normocephalic, atraumatic. ENT: Moist Mucous membranes Cardiovascular: Regular rate Respiratory: Respirations even and unlabored. No increased work of breathing. Talking in full sentences Abdomen/GI: Soft, non-tender. No distention Skin: Warm, dry with normal turgor. Normal color. MS/ Extremity: Pulses equal, no cyanosis. Neurovascular intact. Full, normal range of motion. Neuro: Awake and alert, GCS 15, oriented to person, place, time, and situation. 23:42 Back: pain, that is moderate, of the left mid back, ROM is normal, normal spinal alignment noted, Vital Signs: 22:42 BP 116 / 74; Pulse 86; Resp 22; Temp 97.7; Pulse Ox 100% ; Weight 97.98 kg; Height 5 cg ft. 4 in. ; Pain 02/22; 06/08 00:33 BP 110 / 59; Pulse 66; Resp 16; Pulse Ox 100% on R/A; jb4 01:41 BP 116 / 66; Pulse 67; Resp 17; Pulse Ox 99% on R/A; rg5 02:22 BP 101 / 60; Pulse 67; Resp 17; Pulse Ox 100% on R/A; rg5 06/07 22:42 Body Mass Index 37.08 (97.98 kg, 162.56 cm) cg 06/07 22:42 Pain Scale: Adult cg MDM: 06/07 22:28 Medical Screening Exam initiated kb 23:43 Data reviewed: vital signs, nurses notes. 06/08 00:47 Transition of care: After a detail discussion of the patient's case, care is kb transferred to Manas Ellington MD. 02:50 Differential diagnosis: Anxiety Reaction asthma, Bronchitis pneumonia, pulmonary edema, sp4 Pulmonary Embolism. ED course: EXAM: CT abdomen and pelvis without intravenous contrast CLINICAL DATA: 38 years Female Flank pain;Abd pain TECHNICAL DATA: Axial CT imaging of the abdomen and pelvis was performed without oral or intravenous contrast. Sagittal and coronal reconstructed images were then performed. The CT study is performed according to ALARA (as low as reasonably achievable) or ALARA/IMAGE GENTLY, with automatic adjustment of mA and/or kV according to patient size. Performed on: 06/08/2024 at 12:03 AM Comparison: CT abdomen and pelvis report from 01/28/2024. The images were unavailable for review. FINDINGS: Lung bases: The lung bases are clear. The heart is normal in size. Liver:The liver is normal in size and configuration. No focal hepatic abnormalities are appreciated on this unenhanced scan. Liver attenuation is within normal limits. Spleen:The spleen is normal in size, configuration and attenuation. No focal splenic abnormalities are appreciated on this unenhanced scan. Gallbladder and bile duct: The gallbladder is well distended and unremarkable. There is no biliary ductal dilatation. Pancreas: The pancreas is grossly normal in size and configuration. Adrenal Glands:The adrenal glands are normal in size and configuration. Kidneys:The kidneys are normal in size and configuration. There is no evidence of hydronephrosis. There is no evidence of nephrolithiasis. No focal renal abnormalities are identified. Stomach:The stomach is grossly normal. There is no definite hiatal hernia. Bowel:The bowel gas pattern is non specific and non obstructive. Appendix: The appendix is normal. Free air:There is no evidence of free air. Free fluid: There is no evidence of free fluid. Vasculature: The aorta is normal in caliber and contour. The inferior vena cava is grossly unremarkable. Lymphadenopathy: No pathologic lymphadenopathy is identified. Bladder: The bladder is relatively well distended and smooth in contour. Reproductive: The uterus is grossly within normal limits. Bones: No acute osseous abnormalities are identified. Soft tissues: No acute soft tissue abnormalities are identified. There is a small fat-containing ventral umbilical hernia. IMPRESSION: 1. No evidence of acute intra-abdominal or intrapelvic pathology. There is no evidence of urinary tract calcification or urinary tract obstruction. 2. Small fat-containing ventral umbilical hernia.. 06/07 22:56 Order name: CBC with Diff; Complete Time: 23:46 kb 06/07 22: Order name: CMP; Complete Time: 00:04 kb 06/07 22:56 Order name: Lipase; Complete Time: 00:04 kb 06/0756 Order name: Test, Urine; Complete Time: 02:45 kb 06/07 22:56 Order name: Urinalysis w/ reflexes; Complete Time: 02:45 kb 06/07 22:56 Order name: CT Stone Protocol 06/07 22:56 Order name: IV Saline Lock; Complete Time: 23:15 kb 06/07 22:56 Order name: Labs collected and sent; Complete Time: 23:15 kb Administered Medications: 06/07 23:29 Drug: NS 0.9% IV 1000 ml IV at 1 bolus Per protocol; to be given as a bolus over 60 jb4 minutes Route: IV; Rate: 1 bolus; Site: right antecubital; 06/08 00:30 Follow up: IV Status: Completed infusion; IV Intake: 1000ml rg5 06/07 23:29 Drug: fentaNYL (PF) IVP 25 mcg IVP once Route: IVP; Site: right antecubital; jb4 06/08 01:24 Follow up: Response: No adverse reaction; Pain is decreased rg5 06/07 23:30 Drug: TORadol - Ketorolac IVP 15 mg IVP once Route: IVP; Site: right antecubital; 4 06/08 03:09 Follow up: Response: No adverse reaction 5 06/07 23:30 Drug: Ondansetron IVP 4 mg IVP once; over 2 minutes Route: IVP; Site: right antecubital;jb4 06/08 03:09 Follow up: Response: No adverse reaction 5 Disposition: 03:03 Co-signature as Attending Physician, Manas Potepalov MD I agree with the assessment sp4 and plan of care. I reviewed the patient's care provided by Advanced Practice Provider \T\ agree w/ the diagnosis \T\ care plan. I personally saw the pt \T\ performed a substantive portion of the visit, incldng all aspects of the (History/Exam/Medical Decision Making). Disposition Summary: 06/08/24 03:07 Discharge Ordered Notes: Location: Home sp4 Problem: new sp4 Symptoms: have improved sp4 Condition: Stable sp4 Diagnosis - Acute Thoracic Back pain , Acute left upper back musculoskeletal pain sp4 Followup: sp4 - With: Dagoberto Coleman MD - When: 7 - 10 days - Reason: Recheck today's complaints Discharge Instructions: - Discharge Summary Sheet sp4 - Acute Back Pain, Adult sp4 Forms: - Patient Portal Instructions sp4 Prescriptions: - Ibuprofen 800 mg Oral Tablet - take 1 tablet ORAL route every 8 hours As needed take with food; 30 tablet; sp4 Refills: 0, Product Selection Permitted - Tramadol 50 mg Oral tablet - take 1 tablet ORAL route every 8 hours as needed; 20 tablet; Refills: 0, sp4 Product Selection Permitted - methocarbamol 750 mg Oral tablet - take 2 tablets ORAL route every 8 hours for 14 days PRN pain, Take Together sp4 with Tramadol and Ibuprofen; 60 tablet; Refills: 0, Product Selection Permitted Signatures: Dispatcher [employer] EDFilomena Majano, ELECTRIC LINEMAN-C ELECTRIC LINEMAN-Amadeo Ribera, RN RN jb4 Manas Ellington MD MD sp4 Marco A Ledesma RN RN rg5 Corrections: (The following items were deleted from the chart) 06/07 23:49 23:49 TEST, SERUM+SC.LAB.BRZ ordered. EDMA EDMA
--- NOTE | 2024-06-08 07:08 | RAD REPORT ---
EXAM: CT abdomen and pelvis without intravenous contrast CLINICAL DATA: 38 years Female Flank pain;Abd pain TECHNICAL DATA: Axial CT imaging of the abdomen and pelvis was performed without oral or intravenous contrast. Sagi ttal and coronal reconstructed images were then performed. The CT study is performed according to ALARA (as low as reasonably achievable) or ALARA/IMAGE GENTLY, with automatic adjustment of mA and/or kV according to patient size. Performed on: 06/08/2024 at 12:03 AM Comparison: CT abdomen and pelvis report from 01/28/2024. The images were unavailable for review. FINDINGS: Lung bases: The lung bases are clear. The heart is normal in size. Liver: The liver is normal in size and configuration. No focal hepatic abnormalities are appreciated on this unenhanced scan. Liver attenuation is within normal limits. Spleen: The spleen is normal in size, configuration and attenuation. No focal splenic abnormalities a re appreciated on this unenhanced scan. Gallbladder and bile duct: The gallbladder is well distended and unremarkable. There is no biliary ductal dilatation. Pancreas: The pancreas is grossly normal in size and configuration. Adrenal Glands: The adrenal glands are normal in size and configuration. Kidneys: The kidneys are normal in size and configuration. There is no evidence of hydronephrosis. Th ere is no evidence of nephrolithiasis. No focal renal abnormalities are identified. Stomach: The stomach is grossly normal. There is no definite hiatal hernia. Bowel: The bowel gas pattern is non specific and non obstructive. Appendix: The appendix is normal. Free air: There is no evidence of free air. Free fluid: There is no evidence of free fluid. Vasculature: The aorta is normal in caliber and contour. The inferior vena cava is grossly unremarkab le. Lymphadenopathy: No pathologic lymphadenopathy is identified. Bladder: The bladder is relatively well distended and smooth in contour. Reproductive: The uterus is grossly within normal limits. Bones: No acute osseous abnormalities are identified. Soft tissues: No acute soft tissue abnormalities are identified. There is a small fat-containing vent ral umbilical hernia. IMPRESSION: 1. No evidence of acute intra-abdominal or intrapelvic pathology. There is no evidence of urinary t ract calcification or urinary tract obstruction. 2. Small fat-containing ventral umbilical hernia. Electronically signed by: Keely Ramirez DO 06/08/2024 12:50 AM CDT Due to temporary technical issues with the PACS/iSirona reporting system, reports are being lauren d by the in-house radiologist without review as a courtesy to ensure prompt reporting the interpreting radiologist is fully responsible for the content of the report. Transcribed Date/Time: 06/08/2024 7:08 AM
[2024-06-08 12:41] VITALS: TEMP 97.7
[2024-06-08 12:44] VITALS: BP 101/60; O2SAT 100
== END 2024-06-08 03:24 | disposition home or self-care (01) ==
LOC: ER 22:13
DX: M54.6 Pain in thoracic spine (principal)
CPT/HCPCS: 96361; 85025; 81001; 36415; 81025; 83690; 80053; 76377; 74176; 96375; 96374; 99284; J3010; J2405; J7030

== ENCOUNTER 2024-12-26 05:40 | Emergency (ER) | payer OTHER ==
--- OUTSIDE RECORDS SUMMARY | 2024-12-26 05:43 | XMS REPORT | Continuity of Care Document ---
Author Name Unknown Address [address] [facility] 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 Phone TAMARA RODRIGUEZ Primary Care Physician Unavailab KATHARINA Poe Attending Clinician Unavailable TAWANNA MERCADO Attending Clinician Unavailable KIRSTIE PIZARRO Attending Clinician Unavailable LAB90 Attending Clinician Unavailable MARILYNN CEVALLOS Attending Clinician UnaMarilynn aWllace MD Attending Clinician [phone] Kirstie Pizarro PA-C Attending Clinician [phone] Lab, Adc Fam Pob I Attending Clinician UnavailTamara Ramon Attending Clinician [phone] TAMARA RODRIGUEZ Attending Clinician Unavailable Payers Payer Name Policy Type Policy Number Effective Date Expirati on Date Source [employer] 3 [id number] 2022 00:00:00 [employer] CHOICE [id number] 2019 00:00:00 Problems Condition Name Condition Details Condition Category Status Onset Date Resolution Date Last Treatment Date Treating Clinician Comments Source Morbid obesity with body mass index of 40.0-49.9 Morbid obesity with body mass index of 40.0-49.9 Disease Active 9-28 00:00: 00 [facility] Allergies, Adverse Reactions, Alerts Allergy Name Allergy Type Status Severity Reaction(s) Onset Date Inactive Date Treating Clinician Comments Source Codeine Propensi ty to adverse reaction s Active Hives 03-24 00:00: 00 [facility] CODEINE DRUG INGREDI Active Hives 03-24 00:00: 00 [facility] CODEINE DRUG INGREDI Active Rash 2-26 00:00: 00 [facility] NO KNOWN ALLERGIE S Drug Class Active [facility] Social History Social Habit Start Date Stop Date Quantity Comments Source Exposure to SARS-CoV-2 (event) Not sure [facility] Alcohol intake 2021-04-23 00:00:00 2021-04-23 00:00:00 Current drinker of alcohol (finding) [facility] Tobacco use and exposure 2021-03-24 00:00:00 2021-03-24 00:00:[address] [facility] Sex Assigned At 1985 00:00:00 1985 00:00:00 [facility] Smoking Status Start Date Stop Date Source Never smoker [facility] Medications Ordered Medication Name Filled Medication Name Start Date Stop Date Current Medication? Ordering Clinician Indication Dosage Frequency Signature (SIG) Comments Components Source MELOXICAM ORAL 04-23 13:14: 39 Yes Take by mouth. [facility] LOESTRIN FE 1 mg-20 mcg (21)/75 mg (7) tablet 7- 00:00: 00 Yes Take 1 tablet orally once daily at the same time. [facility] Vital Signs Vital Name Observation Time Observation Value Comments S madie Systolic blood pressure 2021-04-23 18:12:00 117 mm[Hg] [facility] Diastolic blood pressure 2021-04-23 18:12:00 77 mm[Hg] [facility] Heart rate 2021-04-23 18:12:00 76 /min [facility] Body temperature 2021-04-23 18:12:[address] [facility] Respiratory rate 2021-04-23 18:12:00 18 /min [facility] Body height 2021-04-23 18:12:00 162.6 cm [facility] Body weight 2021-04-23 18:12:00 110.315 kg [facility] BMI 2021-04-23 18:12:00 41.75 kg/m2 [facility] Procedures Procedure Date / Time Performed Performing Clinicia n Source LAB ONLY PAP SMEAR-LIQUID BASED 2021-04-23 18:19:[address] [facility] HIGH RISK HPV-THIN PREP 2021-04-23 18:19:[address] [facility] PAP SMEAR-LIQUID BASED-CP 2021-04-23 18:19:[address] [facility] Encounters Start Date/Time End Date/Time Encounter Type Admission Type Attending [facility] Facility Care Department Encounter ID Source 2024-07-11 15:33:00 Outpatient [facility] [id number] [facility] 2024-03-13 08:34:01 Outpatient [facility] [id number] [facility] 2024-01-28 09:24:00 2024-01-28 12:29:00 Emergency E [facility] [id number] [facility] 2022-05-22 00:00:00 2022-05-22 00:00:00 Outpatient TAWANNA MERCADO [id number] Reva Scott 2022-05-06 00:00:00 2022-05-06 00:00:00 Outpatient TAWANNA MERCADO [id number] Reva Scott 2022-04-27 09:30:00 2022-04-27 09:30:00 Outpatient KIRSTIE LUU [facility] [id number] [facility] 2022-04-22 08:20:00 2022-04-22 08:20:00 Outpatient LAB90 REVA HOBBS [id number] Reva Scott 2022-04-16 00:00:00 2022-04-16 00:00:00 Outpatient MARILYNN CEVALLOS [id number] Reva Scott 2022-04-15 09:45:00 2022-04-15 09:45:00 Outpatient LAB90 REVA HOBBS [id number] Reva Scott 2022-04-15 09:00:00 2022-04-15 09:30:00 Office Visit Marilynn Cevallos [facility] 1..[id number] Reva Scott 2021-05-13 10:55:03 2021-05-13 23:59:00 Hospital Encounter Kirstie Pizarro [facility] 1..[id number] [facility] 2021-05-13 00:00:00 2021-05-13 00:00:00 Outpatient Madisyn PIZARRO [facility] [id number] [facility] 2021-04-23 13:00:00 2021-04-23 14:10:09 Outpatient Madisyn PIZARRO [facility] [id number] [facility] 2021-04-23 12:48:28 2021-04-23 14:10:09 Office Visit Juarez [facility] 1..[id number] [facility] 2021-04-23 13:00:00 2021-04-23 13:00:00 Outpatient Madisyn PIZARRO [facility] [id number] [facility] 2021-03-24 08:49:40 2021-03-24 09:09:40 Pad Tufter Visit Lab, Lila [facility] [address] ..[id number] [facility] 2021-03-24 07:39:20 2021-03-24 08:52:51 Office Visit Tamara Rodriguez [facility] [address] [id number] [facility] 2021-03-24 08:00:00 2021-03-24 08:00:00 Outpatient R TAMARA RODRIGUEZ [facility] [id number] [facility] 2019-06-27 19:29:00 2019-06-27 19:29:00 Emergency E [facility] [id number] [facility]
[2024-12-26] MEDS ORDERED: ONDANSETRON 4 MG (ODT) TAB ONE (06:37)
[2024-12-26] MEDS ORDERED: methocarbamoL 750 MG TAB ONE (06:37)
[2024-12-26] MEDS ORDERED: KETOROLAC 30 MG/ML INJ ONE (07:26)
--- NOTE | 2024-12-26 07:42 | RAD REPORT ---
Procedure: Chest Pa And Lat (2 Views) HISTORY: Scapular pain. Chest pain COMPARISON: 2022 FINDINGS: The lungs appear clear of acute infiltrate. No significant pleural effusion noted. The heart is normal size. No gross abnormality of the left scapula seen. IMPRESSION: No acute abnormality is displayed.
[2024-12-26] MEDS ORDERED: FENTANYL CITR 100 MCG/2 ML ONE (08:18)
--- NOTE | 2024-12-26 08:19 | ER ---
Nurse's Notes [facility] Name: Olya Armendariz Age: 39 yrs Sex: Female : 1985 Arrival Date: 12/26/2024 Time: 05:40 Bed 12 Private MD: Diagnosis: Back pain Presentation: 12/26 06:26 Chief complaint: Patient states: here a few months ago for the same thing. My upper vc1 left shoulder blade feels like a pinched nerve, and I have been throwing up since 1 am. Coronavirus screen: Client denies travel out of the [place] in the last 14 days. Ebola Screen: Patient negative for fever greater than or equal to 101.5 degrees Fahrenheit, and additional compatible Ebola Virus Disease symptoms Patient denies exposure to infectious person. Patient denies travel to an Ebola-affected area in the 21 days before illness onset. No symptoms or risks identified at this time. Initial Sepsis Screen: Does the patient meet any 2 criteria? No. Patient's initial sepsis screen is negative. Does the patient have a suspected source of infection? No. Patient's initial sepsis screen is negative. Risk Assessment: Do you want to hurt yourself or someone else? Patient reports no desire to harm self or others. Onset of symptoms was December 25, 2024 at 13:00. 06:26 Acuity: GENEVIEVE 4 vc1 06:26 Method Of Arrival: Ambulatory vc1 Triage Assessment: 06:31 General: Appears in no apparent distress. uncomfortable, Behavior is calm, cooperative, vc1 appropriate for age. Pain: Complains of pain in left scapular area Pain does not radiate. Pain currently is 10 out of 10 on a pain scale. EENT: No deficits noted. No signs and/or symptoms were reported regarding the EENT system. Neuro: Level of Consciousness is awake, alert, obeys commands, Oriented to person, place, time, situation, Appropriate for age. Cardiovascular: Capillary refill < 3 seconds Patient's skin is warm and dry. Respiratory: Airway is patent Respiratory effort is even, unlabored, Respiratory pattern is regular, symmetrical. GI: Reports vomiting. : No deficits noted. No signs and/or symptoms were reported regarding the genitourinary system. Derm: Skin is intact, is healthy with good turgor, Skin is dry, Skin is normal, Skin temperature is warm. Musculoskeletal: Circulation, motion, and sensation intact. Range of motion: intact in all extremities, Reports Pain is 10 out of 10 on a pain scale. 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 - Infectious Disease History:: Denies. - Social history:: Smoking status: Patient denies any tobacco usage or history of. - Family history:: not pertinent. - Hospitalizations: : No recent hospitalization is reported. Screenin:30 [facility] ED Fall Risk Assessment (Adult) History of falling in the last 3 months, vc1 including since admission No falls in past 3 months (0 pts) Confusion or Disorientation No (0 pts) Intoxicated or Sedated No (0 pts) Impaired Gait No (0 pts) Mobility Assist Device Used No (0 pt) Altered Elimination No (0 pt) Score/Fall Risk Level 0 - 2 = Low Risk Oriented to surroundings, Maintained a safe environment, Educated pt \T\ family on fall prevention, incl call for assistance when getting out of bed. Abuse screen: Denies threats or abuse. Nutritional screening: No deficits noted. Tuberculosis screening: No symptoms or risk factors identified. Assessment: 08:22 Reassessment: Pt is awaiting for her mother to pick her up. ss 08:59 Reassessment: Patient appears in no apparent distress at this time. Patient and/or ss family updated on plan of care and expected duration. Pain level reassessed. Patient is alert, oriented x 3, equal unlabored respirations, skin warm/dry/pink. RASS score 0. Mother here to drive pt home. Vital Signs: 06:26 BP 135 / 78; Pulse 63; Resp 20; Temp 98.2; Pulse Ox 100% ; Weight 99.79 kg; Height 5 vc1 ft. 4 in. ; Pain 10/10; 06:26 Body Mass Index 37.76 (99.79 kg, 162.56 cm) 1 06:26 Pain Scale: Adult vc1 ED Course: 05:42 Patient arrived in ED. mr 06:29 Triage completed. vc1 06:30 Arm band placed on right wrist. vc1 06:46 Patient has correct armband on for positive identification. Provided Education on: Plan vc1 of care. 06:56 Tino Walters MD is Attending Physician. rn 07:25 XRAY Chest Pa And Lat (2 Views) In Process Unspecified. EDMS 07:29 Lulu Baum, RUSSELL is Primary Nurse. ss 08:59 No provider procedures requiring assistance completed. Patient did not have IV access ss during this emergency room visit. Administered Medications: 06:45 Drug: Ondansetron PO 8 mg PO once Route: PO; vc1 07:29 Follow up: Response: No adverse reaction ss 06:46 Drug: Methocarbamol PO 1500 mg PO once Route: PO; vc1 07:29 Follow up: Response: No adverse reaction ss 07:38 Drug: Ketorolac IM 30 mg IM once Route: IM; Site: left gluteus; ss 08:22 Follow up: Response: No adverse reaction ss 08:22 Drug: fentaNYL (PF) IM 50 mcg IM once Route: IM; Site: right gluteus; ss 09:00 Follow up: Response: No adverse reaction; Pain is decreased; RASS: Alert and Calm (0) ss Medication: 06:31 VIS not applicable for this client. vc1 Outcome: 08:19 Discharge ordered by . rn 08:59 Discharged to home ambulatory, ss 08:59 Condition: good 08:59 Discharge instructions given to patient, family, Instructed on discharge instructions, follow up and referral plans. medication usage, Demonstrated understanding of instructions, follow-up care, medications, Prescriptions given X 2, 09:00 Patient left the ED. ss Signatures: Dispatcher [employer] EDOK PrasadDelaney, Reg Jim mr Tino Walters MD MD rn Blanchard, Shelby, RN RN Dea Gonzalez RN RN vc1
--- NOTE | 2024-12-26 08:20 | EDPHYS ---
Physician Documentation [facility] Name: Olya Armendariz Age: 39 yrs Sex: Female : 1985 Arrival Date: 12/26/2024 Time: 05:40 Bed 12 Private MD: ED Physician Tino Walters HPI: 12/26 07:30 This 39 yrs old Female presents to ER via Ambulatory with complaints of Shoulder Pain. rn 07:30 left scapular area. Patient reports left scapular region pain. Feels tight and worse rn with range of motion. 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 Denies trauma. No chest pain or abdominal pain. No shortness of breath. Has been evaluated here for this before and usually improves with muscle relaxers. Took muscle relaxer and did not go away. No fever or chills. No chronic lung or heart problems.. DIGITAL INTERN: 06:30 LMP 12/06/2024, unknown vc1 Historical: - Allergies: 06:29 Codeine; vc1 - Home Meds: 06:29 Trazodone Oral [Active]; tizanidine 2 mg oral capsule BID [Active]; vc1 - PMHx: 06:29 None; vc1 - PSHx: 06:29 knee surgery; vc1 - Immunization history:: Adult Immunizations up to date. - Infectious Disease History:: Denies. - Social history:: Smoking status: Patient denies any tobacco usage or history of. - Family history:: not pertinent. - Hospitalizations: : No recent hospitalization is reported. ROS: 07:30 Constitutional: Negative for fever, chills, and weight loss, Neck: Negative for injury, rn pain, and swelling, Cardiovascular: Negative for chest pain, palpitations, and edema, Respiratory: Negative for shortness of breath, cough, wheezing, and pleuritic chest pain, Abdomen/GI: Negative for abdominal pain, nausea, vomiting, diarrhea, and constipation, MS/Extremity: Negative for injury and deformity, Skin: Negative for injury, rash, and discoloration, Neuro: Negative for headache, weakness, numbness, tingling, and seizure, Exam: 07:30 Constitutional: This is a well developed, well nourished patient who is awake, alert, rn and in no acute distress. Cardiovascular: Regular rate and rhythm. No pulse deficits. Respiratory: No increased work of breathing, no retractions or nasal flaring. Abdomen/GI: Soft, non-tender Back: No spinal tenderness. Reproducible pain with left arm movement Vital Signs: 06:26 BP 135 / 78; Pulse 63; Resp 20; Temp 98.2; Pulse Ox 100% ; Weight 99.79 kg; Height 5 vc1 ft. 4 in. ; Pain 10/10; 06:26 Body Mass Index 37.76 (99.79 kg, 162.56 cm) vc1 06:26 Pain Scale: Adult vc1 MDM: 06:56 Medical Screening Exam initiated rn 08:18 Differential diagnosis: Muscle spasm of back, disc problem, radiculopathy, arthritis. rn Data reviewed: vital signs, nurses notes, old medical records, and as a result, I will discharge patient. Data reviewed: old medical records, Old medical records showed negative workup including CT stone protocol. Counseling: I had a detailed discussion with the patient and/or guardian regarding the historical points, exam findings, and any diagnostic results supporting the discharge/admit diagnosis, the need for outpatient follow up, to return to the emergency department if symptoms worsen or persist or if there are any questions or concerns that arise at home. Response to treatment: the patient's symptoms have mildly improved after treatment, and as a result, I will discharge patient. Special discussion: I discussed with the patient/guardian in detail that at this point there is no indication for admission to the hospital. It is understood, however, that if the symptoms persist or worsen the patient needs to return immediately for re-evaluation. Based on the history and exam findings, there is no indication for further emergent testing or inpatient evaluation. I discussed with the patient/guardian the need to see the back specialist for further evaluation of the symptoms. I discussed with the patient/guardian the need to see the primary care provider for further evaluation of the symptoms. 12/26 07:07 Order name: XRAY Chest Pa And Lat (2 Views); Complete Time: 07:57 rn Administered Medications: 06:45 Drug: Ondansetron PO 8 mg PO once Route: PO; vc1 07:29 Follow up: Response: No adverse reaction ss 06:46 Drug: Methocarbamol PO 1500 mg PO once Route: PO; vc1 07:29 Follow up: Response: No adverse reaction ss 07:38 Drug: Ketorolac IM 30 mg IM once Route: IM; Site: left gluteus; ss 08:22 Follow up: Response: No adverse reaction ss 08:22 Drug: fentaNYL (PF) IM 50 mcg IM once Route: IM; Site: right gluteus; ss 09:00 Follow up: Response: No adverse reaction; Pain is decreased; RASS: Alert and Calm (0) ss Disposition Summary: 12/26/24 08:19 Discharge Ordered Notes: Location: Home rn Problem: an ongoing problem rn Symptoms: have improved rn Condition: Stable rn Diagnosis - Back pain rn Followup: rn - With: Private Physician - When: As needed - Reason: Recheck today's complaints, Re-evaluation by your physician Discharge Instructions: - Discharge Summary Sheet rn - Chronic Back Pain rn Forms: - Medication Reconciliation Form rn - 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 - Prescription Opioid Use rn - Patient Portal Instructions rn - Leadership Thank You Letter rn Prescriptions: - gabapentin 100 mg Oral capsule - take 1 capsule ORAL route 2 times per day As needed; 14 capsule; Refills: 0, rn Product Selection Permitted - Diclofenac Sodium 75 mg Oral tablet, delayed release (enteric coated) - take 1 tablet ORAL route 2 times per day As needed; 14 tablet; Refills: 0, rn Product Selection Permitted Signatures: Dispatcher [employer] Tino Mack MD MD rn Blanchard, Shelby, RN RN ss Calcote, Vanessa, RN RN vc1 Manas Ellington MD MD sp4 Corrections: (The following items were deleted from the chart) 07:08 07:08 Chest Pa And Lat (2 Views)+[email or web address] ordered. EDMS ED
[2024-12-26 09:13] VITALS: BP 135/78; TEMP 98.2; O2SAT 100
== END 2024-12-26 09:00 | disposition home or self-care (01) ==
LOC: ER 05:40
DX: M54.9 Dorsalgia, unspecified (principal); M25.512 Pain in left shoulder
CPT/HCPCS: 71046; 96372; 99284; Q0162; J3010